=== PATIENT | male | born 1940 | race Caucasian/White ===

== ENCOUNTER 2019-10-31 21:41 | Inpatient (IN) ==
[2019-10-31] MEDS ORDERED: Piperacillin/Tazobactam 3.375 GM in 0.9 % Sodium Chloride Mini Bag 100 ML IVPB ONE (22:28)
[2019-10-31 23:04] LABS: ABG Base Excess -1 mEq/L (-2 to 3); ABG HCO3 22 mEq/L (21-27); ABG Oxygen Saturation 100 % (95-98); ABG PCO2 26 mmHg (35-45); ABG PH 7.53 pH Units (7.32-7.45); ABG PO2 148 mmHg (85-104); ABG TCO2 22 mEq/L (20-26)
[2019-10-31 23:21] LABS: Basophils % 0.3 %; Hematocrit 34.7 % (37.5-50.1); Hemoglobin 10.7 g/dL (12.9-16.9); Immature Granulocytes % 0.3 % (0-4); Lymphocytes # 1.1 K/mcL (0.6-4.6); Lymphocytes % 8.4 %; Mean Corpuscular HGB Conc 30.8 g/dL (31.6-35.5); Mean Corpuscular Hemoglobin 29.9 pg (28.0-33.3); Mean Corpuscular Volume 96.9 fL (83.0-100.0); Mean Platelet Volume 10.4 fL (9.4-12.4); Monocytes # 1.1 K/mcL (0.0-1.3); Monocytes % 7.9 %; Neutrophils # 11.1 K/mcL (1.6-8.9); Platelet Count 248 K/mcL (140-400); Red Blood Count 3.58 M/mcL (4.19-5.50); Red Cell Distribution Width 13.2 % (11.5-14.5); Segmented Neutrophils % 83.1 %; White Blood Count 13.4 K/mcL (4.3-11.1)
[2019-10-31 23:23] LABS: Bilirubin,Urine Negative (Negative); Blood,Urine Large (Negative); Clarity,Urine Cloudy (Clear); Color,Urine Yellow (Yellow); Glucose,Urine (UA) Normal (Normal); Ketones,Urine Negative (Negative); Leukocyte Esterase,Urine Large (Negative); Nitrite,Urine Negative (Negative); Protein,Urine >=300 mg/dL (Neg-Trace); Specific Gravity,Urine 1.018 (1.010-1.025); Urobilinogen,Urine Normal (Normal)
[2019-10-31 23:27] LABS: Hyaline Casts,Urine None Seen per lpf (None-Few); Squamous Epithelial Cell,Urine Moderate per lpf (None-Few); WBC,Urine TNTC per hpf (0-3)
[2019-10-31 23:28] LABS: INR 1.2; Prothrombin Time 14.1 Seconds (9.4-12.1)
[2019-10-31 23:30] LABS: Activated Partial Thrombo Time 30.7 Seconds (26.0-36.0)
[2019-10-31] MEDS ORDERED: Isovue-370 500 ML BOTTLE IVP ONE (23:32)
[2019-10-31 23:33] LABS: Amphetamine Screen,Urine Negative ng/mL (Cutoff=1000); Barbiturate Screen,Urine Negative ng/mL (Cutoff=200); Benzodiazepines Screen,Urine Negative ng/mL (Cutoff=200); Cannabinoid Screen,Urine Negative ng/mL (Cutoff = 50); Cocaine Screen,Urine Negative ng/mL (Cutoff= 300); Opiate Screen,Urine Negative ng/mL (Cutoff=300); Phencyclidine Screen,Urine Negative ng/mL (Cutoff=25)
[2019-10-31 23:47] LABS: Albumin 3.6 g/dL (3.5-5.7); Albumin/Globulin Ratio 1.2 (1.1-2.2); Bilirubin,Total 0.7 mg/dL (0.3-1.0); Calcium 8.4 mg/dL (8.6-10.3); Potassium 4.9 mEq/L (3.5-5.1); Total Protein 6.6 g/dL (6.4-8.9); Troponin I 0.03 ng/mL (< 0.04)
[2019-10-31 23:57] LABS: Bacteria,Urine Few per hpf (None-Few); RBC,Urine 0-3 per hpf (0-3)
[2019-11-01 00:18] LABS: Bilirubin,Direct 0.2 mg/dL (0.0-0.2); Bilirubin,Indirect 0.5 mg/dL (0.0-1.0)
[2019-11-01] MEDS ORDERED: *HR* Heparin 5,000 UNIT/ML VIAL IVP PRN ×2 (01:10)
[2019-11-01] MEDS ORDERED: *HR* Heparin 5,000 UNIT/ML VIAL IVP ONE (01:10)
[2019-11-01] MEDS ORDERED: Heparin 25,000 UNIT/250 ML D5W 25,000 UNIT/250 ML IV.SOLN IVC SCH (01:15)
[2019-11-01 01:45] LABS: Hematocrit 34.2 % (37.5-50.1); Hemoglobin 10.9 g/dL (12.9-16.9); Mean Corpuscular HGB Conc 31.9 g/dL (31.6-35.5); Mean Corpuscular Hemoglobin 30.5 pg (28.0-33.3); Mean Corpuscular Volume 95.8 fL (83.0-100.0); Mean Platelet Volume 9.8 fL (9.4-12.4); Platelet Count 236 K/mcL (140-400); Red Blood Count 3.57 M/mcL (4.19-5.50); Red Cell Distribution Width 13.2 % (11.5-14.5); White Blood Count 14.1 K/mcL (4.3-11.1)
[2019-11-01 01:58] LABS: Heparin anti-factor XA UFH < 0.04 IU/mL (0.30-0.70)
[2019-11-01 01:59] LABS: INR 1.2; Prothrombin Time 13.7 Seconds (9.4-12.1)
[2019-11-01] MEDS ORDERED: Naloxone 0.4 MG/ML INJ IVP PRN (02:04)
[2019-11-01] MEDS: 0.9 % Sodium Chloride 1,000 ML IVC SCH (04:52)
[2019-11-01] MEDS: Acetaminophen 650 MG RECTAL SUPP RC PRN ×2 (05:01→23:13)
[2019-11-01 05:48] LABS: Basophils % 0.2 %; Eosinophils % 0.1 %; Hematocrit 31.8 % (37.5-50.1); Hemoglobin 10.1 g/dL (12.9-16.9); Immature Granulocytes % 0.4 % (0-4); Lymphocytes # 1.3 K/mcL (0.6-4.6); Lymphocytes % 9.4 %; Mean Corpuscular HGB Conc 31.8 g/dL (31.6-35.5); Mean Corpuscular Hemoglobin 30.7 pg (28.0-33.3); Mean Corpuscular Volume 96.7 fL (83.0-100.0); Mean Platelet Volume 10.8 fL (9.4-12.4); Monocytes # 1.1 K/mcL (0.0-1.3); Monocytes % 7.9 %; Neutrophils # 11.4 K/mcL (1.6-8.9); Platelet Count 221 K/mcL (140-400); Red Blood Count 3.29 M/mcL (4.19-5.50); Red Cell Distribution Width 13.2 % (11.5-14.5); White Blood Count 13.9 K/mcL (4.3-11.1)
[2019-11-01 06:17] LABS: Albumin 3.1 g/dL (3.5-5.7); Albumin/Globulin Ratio 1.1 (1.1-2.2); Bilirubin,Total 0.7 mg/dL (0.3-1.0); Calcium 7.9 mg/dL (8.6-10.3); Globulin 2.8 g/dL (2.4-3.5); Potassium 4.5 mEq/L (3.5-5.1); Total Protein 5.9 g/dL (6.4-8.9); Troponin I 0.05 ng/mL (< 0.04)
[2019-11-01] MEDS: Piperacillin/Tazobactam 3.375 GM in 0.9 % Sodium Chloride Mini Bag 100 ML IVPB SCH ×2 (08:08→17:25)
[2019-11-01] MEDS: Budesonide/Formoterol 160/4.5 1 PUFF INH IH SCH ×2 (10:48→20:01)
[2019-11-01] MEDS: PARoxetine 20 MG TABLET PO SCH (11:44)
[2019-11-01] MEDS: Carbidopa/Levodopa 25/250 TABLET PO SCH ×4 (11:44→20:25)
[2019-11-01] MEDS: Finasteride 5 MG TABLET PO SCH (11:45)
[2019-11-01 16:58] LABS: blaKPC Carbapenem-Resist Gene Not Detected (Not Detect)
[2019-11-01 16:59] LABS: Acinetobacter baumannii by PCR Not Detected (Not Detect); Candida albicans by PCR Not Detected (Not Detect); Candida glabrata by PCR Not Detected (Not Detect); Candida krusei by PCR Not Detected (Not Detect); Candida parapsilosis by PCR Not Detected (Not Detect); Candida tropicalis by PCR Not Detected (Not Detect); Enterobacter cloacae Cmplx PCR Not Detected (Not Detect); Enterobacteriaceae by PCR DETECTED (Not Detect); Enterococcus by PCR Not Detected (Not Detect); Escherichia coli by PCR DETECTED (Not Detect); Klebsiella oxytoca by PCR Not Detected (Not Detect); Klebsiella pneumoniae by PCR Not Detected (Not Detect); Proteus by PCR Not Detected (Not Detect); Pseudomonas aeruginosa by PCR Not Detected (Not Detect); Serratia marcescens by PCR Not Detected (Not Detect); Staphylococcus aureus by PCR Not Detected (Not Detect); Staphylococcus by PCR Not Detected (Not Detect); Streptococcus agalactiae(B)PCR Not Detected (Not Detect); Streptococcus by PCR Not Detected (Not Detect); Streptococcus pneumoniae PCR Not Detected (Not Detect); Streptococcus pyogenes (A) PCR Not Detected (Not Detect)
[2019-11-01] MEDS: *HR* Enoxaparin 80 MG/0.8 ML SYRINGE SQ SCH (19:22)
[2019-11-01] MEDS ORDERED: QUEtiapine Fumarate 25 MG TABLET PO SCH (21:00)
[2019-11-02] MEDS: Carbidopa/Levodopa 25/250 TABLET PO SCH ×5 (00:38→20:43)
[2019-11-02] MEDS: 0.9 % Sodium Chloride 1,000 ML IVC SCH (00:38)
[2019-11-02] MEDS: Piperacillin/Tazobactam 3.375 GM in 0.9 % Sodium Chloride Mini Bag 100 ML IVPB SCH ×2 (00:38→08:03)
[2019-11-02 04:46] LABS: Basophils % 0.3 %; Hematocrit 33.5 % (37.5-50.1); Hemoglobin 10.4 g/dL (12.9-16.9); Immature Granulocytes % 0.4 % (0-4); Lymphocytes # 1.3 K/mcL (0.6-4.6); Lymphocytes % 12.9 %; Mean Corpuscular Hemoglobin 30.5 pg (28.0-33.3); Mean Corpuscular Volume 98.2 fL (83.0-100.0); Mean Platelet Volume 10.6 fL (9.4-12.4); Monocytes # 0.9 K/mcL (0.0-1.3); Monocytes % 8.5 %; Neutrophils # 7.8 K/mcL (1.6-8.9); Platelet Count 218 K/mcL (140-400); Red Blood Count 3.41 M/mcL (4.19-5.50); Red Cell Distribution Width 13.2 % (11.5-14.5); Segmented Neutrophils % 77.9 %
[2019-11-02 05:05] LABS: BUN/Creatinine Ratio 26 (6-26); Blood Urea Nitrogen 33 mg/dL (8-23); Calcium 7.7 mg/dL (8.6-10.3); Carbon Dioxide 20 mEq/L (23-29); Chloride 119 mEq/L (98-107); Glucose 81 mg/dL (70-105); Osmolality,Calculated 316 (280-300); Potassium 3.7 mEq/L (3.5-5.1); Sodium 150 mEq/L (136-145); eGFR For African Americans > 60 (> 60); eGFR For Non-African Americans 54 (> 60)
[2019-11-02] MEDS: *HR* Enoxaparin 80 MG/0.8 ML SYRINGE SQ SCH ×2 (05:41→17:59)
[2019-11-02] MEDS: Acetaminophen 650 MG RECTAL SUPP RC PRN (08:03)
[2019-11-02] MEDS: D5% in Water 1,000 ML IVC SCH ×2 (08:05→18:18)
[2019-11-02] MEDS: PARoxetine 20 MG TABLET PO SCH ×2 (08:06→17:56)
[2019-11-02] MEDS: Finasteride 5 MG TABLET PO SCH (08:06)
[2019-11-02] MEDS: Budesonide/Formoterol 160/4.5 1 PUFF INH IH SCH ×2 (09:00→19:46)
[2019-11-02] MEDS ORDERED: cefTRIAXone 2,000 MG in Water for inj. (sterile) 20 ML IVP SCH (16:00)
[2019-11-02] MEDS: QUEtiapine Fumarate 25 MG TABLET PO SCH ×2 (17:57→20:45)
[2019-11-02 22:42] LABS: BUN/Creatinine Ratio 25 (6-26); Blood Urea Nitrogen 26 mg/dL (8-23); Calcium 7.4 mg/dL (8.6-10.3); Carbon Dioxide 23 mEq/L (23-29); Chloride 113 mEq/L (98-107); Glucose 183 mg/dL (70-105); Osmolality,Calculated 303 (280-300); Potassium 3.5 mEq/L (3.5-5.1); Sodium 142 mEq/L (136-145); eGFR For African Americans > 60 (> 60); eGFR For Non-African Americans > 60 (> 60)
[2019-11-03 01:55] LABS: Basophils % 0.2 %; Eosinophils # 0.1 K/mcL (0.0-0.6); Eosinophils % 1.2 %; Hemoglobin 8.9 g/dL (12.9-16.9); Immature Granulocytes % 0.3 % (0-4); Lymphocytes # 1.4 K/mcL (0.6-4.6); Lymphocytes % 21.3 %; Mean Corpuscular HGB Conc 30.7 g/dL (31.6-35.5); Mean Corpuscular Volume 97.6 fL (83.0-100.0); Mean Platelet Volume 10.4 fL (9.4-12.4); Monocytes # 0.7 K/mcL (0.0-1.3); Monocytes % 10.3 %; Neutrophils # 4.3 K/mcL (1.6-8.9); Platelet Count 197 K/mcL (140-400); Red Blood Count 2.97 M/mcL (4.19-5.50); Red Cell Distribution Width 13.2 % (11.5-14.5); Segmented Neutrophils % 66.7 %; White Blood Count 6.5 K/mcL (4.3-11.1)
[2019-11-03 02:18] LABS: BUN/Creatinine Ratio 25 (6-26); Blood Urea Nitrogen 25 mg/dL (8-23); Calcium 7.5 mg/dL (8.6-10.3); Carbon Dioxide 23 mEq/L (23-29); Chloride 114 mEq/L (98-107); Glucose 103 mg/dL (70-105); Osmolality,Calculated 301 (280-300); Potassium 3.5 mEq/L (3.5-5.1); Sodium 143 mEq/L (136-145); eGFR For African Americans > 60 (> 60); eGFR For Non-African Americans > 60 (> 60)
[2019-11-03] MEDS: Carbidopa/Levodopa 25/250 TABLET PO SCH ×5 (04:19→21:12)
[2019-11-03] MEDS: *HR* Enoxaparin 80 MG/0.8 ML SYRINGE SQ SCH (05:07)
[2019-11-03] MEDS: Ipratropium/Albuterol Neb 3 ML IH PRN (05:24)
[2019-11-03] MEDS: Budesonide/Formoterol 160/4.5 1 PUFF INH IH SCH ×2 (07:47→22:17)
[2019-11-03] MEDS ORDERED: Isovue-370 500 ML BOTTLE IVP ONE (07:47)
[2019-11-03] MEDS: D5% in Water 1,000 ML IVC SCH (08:49)
[2019-11-03] MEDS: 0.9 % Sodium Chloride 1,000 ML IVC SCH (09:15)
[2019-11-03] MEDS: Finasteride 5 MG TABLET PO SCH (10:57)
[2019-11-03] MEDS: Ertapenem 1,000 MG in 0.9 % Sodium Chloride Mini Bag 100 ML IVPB SCH (10:57)
[2019-11-03] MEDS: QUEtiapine Fumarate 25 MG TABLET PO SCH ×3 (10:58→21:12)
[2019-11-03] MEDS: Furosemide 40 MG TABLET PO SCH (14:00)
[2019-11-04] MEDS: Carbidopa/Levodopa 25/250 TABLET PO SCH ×5 (00:17→20:34)
[2019-11-04 04:11] LABS: Basophils % 0.2 %; Eosinophils # 0.3 K/mcL (0.0-0.6); Eosinophils % 5.6 %; Hemoglobin 8.9 g/dL (12.9-16.9); Immature Granulocytes % 0.2 % (0-4); Lymphocytes # 1.3 K/mcL (0.6-4.6); Lymphocytes % 26.8 %; Mean Corpuscular HGB Conc 30.7 g/dL (31.6-35.5); Mean Corpuscular Hemoglobin 29.8 pg (28.0-33.3); Mean Platelet Volume 10.4 fL (9.4-12.4); Monocytes # 0.4 K/mcL (0.0-1.3); Monocytes % 7.5 %; Neutrophils # 2.8 K/mcL (1.6-8.9); Platelet Count 202 K/mcL (140-400); Red Blood Count 2.99 M/mcL (4.19-5.50); Red Cell Distribution Width 13.1 % (11.5-14.5); Segmented Neutrophils % 59.7 %; White Blood Count 4.7 K/mcL (4.3-11.1)
[2019-11-04 04:16] LABS: BUN/Creatinine Ratio 19 (6-26); Blood Urea Nitrogen 17 mg/dL (8-23); Calcium 7.5 mg/dL (8.6-10.3); Carbon Dioxide 26 mEq/L (23-29); Chloride 110 mEq/L (98-107); Glucose 147 mg/dL (70-105); Osmolality,Calculated 298 (280-300); Potassium 3.7 mEq/L (3.5-5.1); Sodium 142 mEq/L (136-145); eGFR For African Americans > 60 (> 60); eGFR For Non-African Americans > 60 (> 60)
[2019-11-04] MEDS: *HR* Enoxaparin 40 MG/0.4 ML SYRINGE SQ SCH (05:09)
[2019-11-04] MEDS: Budesonide/Formoterol 160/4.5 1 PUFF INH IH SCH ×2 (08:53→19:54)
[2019-11-04] MEDS: Furosemide 40 MG TABLET PO SCH (08:59)
[2019-11-04] MEDS: Finasteride 5 MG TABLET PO SCH (09:00)
[2019-11-04] MEDS: PARoxetine 20 MG TABLET PO SCH (09:00)
[2019-11-04] MEDS: QUEtiapine Fumarate 25 MG TABLET PO SCH ×3 (09:00→20:34)
[2019-11-04] MEDS: Ertapenem 1,000 MG in 0.9 % Sodium Chloride Mini Bag 100 ML IVPB SCH (09:03)
[2019-11-05] MEDS: Carbidopa/Levodopa 25/250 TABLET PO SCH ×5 (00:52→19:46)
[2019-11-05] MEDS: *HR* Enoxaparin 40 MG/0.4 ML SYRINGE SQ SCH (05:51)
[2019-11-05] MEDS: Furosemide 40 MG TABLET PO SCH (09:01)
[2019-11-05] MEDS: Finasteride 5 MG TABLET PO SCH (09:01)
[2019-11-05] MEDS: PARoxetine 20 MG TABLET PO SCH (09:01)
[2019-11-05] MEDS: QUEtiapine Fumarate 25 MG TABLET PO SCH ×3 (09:03→19:46)
[2019-11-05] MEDS: Ertapenem 1,000 MG in 0.9 % Sodium Chloride Mini Bag 100 ML IVPB SCH (09:07)
[2019-11-05] MEDS: Budesonide/Formoterol 160/4.5 1 PUFF INH IH SCH ×2 (10:12→22:55)
[2019-11-06] MEDS: Carbidopa/Levodopa 25/250 TABLET PO SCH ×6 (01:21→23:33)
[2019-11-06] MEDS: *HR* Enoxaparin 40 MG/0.4 ML SYRINGE SQ SCH (05:02)
[2019-11-06] MEDS: Budesonide/Formoterol 160/4.5 1 PUFF INH IH SCH ×2 (07:54→19:54)
[2019-11-06] MEDS: Ertapenem 1,000 MG in 0.9 % Sodium Chloride Mini Bag 100 ML IVPB SCH (09:50)
[2019-11-06] MEDS: PARoxetine 20 MG TABLET PO SCH (09:52)
[2019-11-06] MEDS: Finasteride 5 MG TABLET PO SCH (09:52)
[2019-11-06] MEDS: Furosemide 40 MG TABLET PO SCH (09:52)
[2019-11-06] MEDS: QUEtiapine Fumarate 25 MG TABLET PO SCH ×3 (09:55→21:24)
[2019-11-07 04:04] LABS: Hematocrit 31.2 % (37.5-50.1); Hemoglobin 9.9 g/dL (12.9-16.9); Mean Corpuscular HGB Conc 31.7 g/dL (31.6-35.5); Mean Corpuscular Hemoglobin 30.7 pg (28.0-33.3); Mean Corpuscular Volume 96.6 fL (83.0-100.0); Mean Platelet Volume 9.8 fL (9.4-12.4); Platelet Count 257 K/mcL (140-400); Red Blood Count 3.23 M/mcL (4.19-5.50); Red Cell Distribution Width 12.4 % (11.5-14.5); White Blood Count 8.2 K/mcL (4.3-11.1)
[2019-11-07] MEDS: *HR* Enoxaparin 40 MG/0.4 ML SYRINGE SQ SCH (05:08)
[2019-11-07] MEDS: Ipratropium/Albuterol Neb 3 ML IH PRN (05:25)
[2019-11-07] MEDS: Budesonide/Formoterol 160/4.5 1 PUFF INH IH SCH (07:51)
[2019-11-07] MEDS: Finasteride 5 MG TABLET PO SCH (08:51)
[2019-11-07] MEDS: QUEtiapine Fumarate 25 MG TABLET PO SCH (08:51)
[2019-11-07] MEDS: PARoxetine 20 MG TABLET PO SCH (08:52)
[2019-11-07] MEDS: Ertapenem 1,000 MG in 0.9 % Sodium Chloride Mini Bag 100 ML IVPB SCH (08:52)
[2019-11-07] MEDS: Furosemide 40 MG TABLET PO SCH (08:52)
[2019-11-07] MEDS: Carbidopa/Levodopa 25/250 TABLET PO SCH ×2 (09:09→12:26)
[2019-11-07 10:57] VITALS: BP 106/65
== END 2019-11-07 13:26 | DRG 871 ==
LOC: EMEROOARM 21:41 → 2NENU 21:41 → SUATTDRO 11-01 17:13 → 3BNU 11-02 20:25
PROVIDERS: ADMIT Internal Medicine; ATTEND Internal Medicine